=== PATIENT | male | born 1985 ===

== ENCOUNTER 2017-06-14 13:16 | Emergency (ER) | payer SELFPAY ==
[2017-06-14 14:03] VITALS: BP 125/83
--- NOTE | 2017-06-15 14:41 | ED Elopement Review ---
ED Pt Elopement review - Call Back decision Pt Call Back Decision: No action required
== END 2017-06-14 18:28 | disposition left against medical advice (07) ==
LOC: ED 13:16
DX: Z53.21 Procedure and treatment not carried out due to patient leaving prior to being seen by health care provider (principal)